=== PATIENT | male | born 1940 | race Caucasian/White ===

== ENCOUNTER → 2018-01-23 | Outpatient (CLI) | payer BC, MEDICARE | LOC: COL.RAD 08:46 | DX: Z01.812 Encounter for preprocedural laboratory examination (principal); R59.0 Localized enlarged lymph nodes; S22.32XD Fracture of one rib, left side, subsequent encounter for fracture with routine healing; Z98.890 Other specified postprocedural states; Z85.46 Personal history of malignant neoplasm of prostate | CPT/HCPCS: A9503; Q9967 ==

== ENCOUNTER → 2018-10-28 | Outpatient (CLI) | payer BC, MEDICARE | LOC: COL.RAD 08:46 | DX: Z01.818 Encounter for other preprocedural examination (principal); Z87.81 Personal history of (healed) traumatic fracture; Z90.79 Acquired absence of other genital organ(s) | CPT/HCPCS: A9503; Q9967 ==

== ENCOUNTER → 2019-06-23 | Outpatient (CLI) | payer MEDICARE | LOC: COL.RAD 09:41 | DX: C61 Malignant neoplasm of prostate (principal); M89.9 Disorder of bone, unspecified | CPT/HCPCS: A9503; Q9967 ==

== ENCOUNTER → 2019-10-01 | Outpatient (CLI) | payer MEDICARE | LOC: ZCOL.LAB 16:27 | DX: Z01.89 Encounter for other specified special examinations (principal) ==

== ENCOUNTER → 2020-01-06 | Outpatient (CLI) | payer MEDICARE | LOC: COL.RAD 08:49 | DX: C61 Malignant neoplasm of prostate (principal); G95.89 Other specified diseases of spinal cord; M48.8X4 Other specified spondylopathies, thoracic region | CPT/HCPCS: A9503; Q9967 ==

== ENCOUNTER → 2020-06-23 | Outpatient (CLI) | payer MEDICARE | LOC: COL.RAD | DX: C61 Malignant neoplasm of prostate (principal); C79.51 Secondary malignant neoplasm of bone; S22.42XD Multiple fractures of ribs, left side, subsequent encounter for fracture with routine healing; S72.142D Displaced intertrochanteric fracture of left femur, subsequent encounter for closed fracture with routine healing | CPT/HCPCS: A9503; Q9967 ==

== ENCOUNTER → 2020-12-15 | Outpatient (CLI) | payer MEDICARE ==
[~2020-12-15] MED LIST: COMPAZINE 110 MG/TAB PO; DECADRON 4MG TAB4 MG PO; DIGITEK0.25 MG PO; ELIQUIS 5MG PO; LUPRON DEPOT45 MG; NEULASTA O6 MG/0.6 M SQ; NORCO 325 MG-51 TAB PO; ONE-A-DAY ESSE1 EACH PO; PACERONE400 MG PO; PREDNISONE 5MG5 MG PO; TAXOTERE20 MG/ML IV; TOPROL XL 25MG25 MG PO; VITAMIN D31000 I1 PO; VITAMINC1000TA PO; ZYTIGA500 MG PO
== END ==
LOC: COL.RAD
DX: C61 Malignant neoplasm of prostate (principal); S22.39XA Fracture of one rib, unspecified side, initial encounter for closed fracture; M89.9 Disorder of bone, unspecified; M48.56XA Collapsed vertebra, not elsewhere classified, lumbar region, initial encounter for fracture
CPT/HCPCS: A9503; Q9967

== ENCOUNTER 2021-01-16 06:45 | Day surgery (SDC) | payer MEDICARE ==
[2006-09-12 06:13] VITALS: BP 145/81
[~2021-01-16] VITALS: Ht 185.4 cm; Wt 72.6 kg
[2021-01-16] MEDS ORDERED: ZYTIGA500 MG PO (07:26)
[2021-01-16] MEDS ORDERED: PREDNISONE 5MG5 MG PO (07:26)
[2021-01-16] MEDS ORDERED: VITAMIN D31000 I1 PO (07:27)
[2021-01-16] MEDS ORDERED: VITAMINC1000TA PO (07:27)
[2021-01-16] MEDS ORDERED: ONE-A-DAY ESSE1 EACH PO (07:28)
[2021-01-16] MEDS ORDERED: LUPRON DEPOT45 MG (07:29)
--- NOTE | 2021-01-16 07:49 | NUR ---
PT'S PULSE NOTED TO BE IRREGULAR WHEN COLLECTING VITAL SIGNS. AUSCULTATED HEART AND NOTED TO BE IRREGULAR. Nadeen SIMMS CRNA NOTIFIED, TORB RECEIVED FOR EKG. EKG ORDER PLACED.
--- NOTE | 2021-01-16 07:50 | NUR ---
RESPIRATORY THERAPY NOTIFIED OF EKG ORDER. RT STATES WILL BE ABOUT 20 MINUTES BEFORE THEY WILL BE ABLE TO OBTAIN EKG.
--- NOTE | 2021-01-16 08:00 | NUR ---
PT AND SPOUSE NOTIFIED THAT EKG HAD BEEN ORDERED AND THEY WOULD BE IN SHORTLY.
[2021-01-16 08:15] VITALS: BP 125/83; PULSE 68; TEMP 97.9
--- NOTE | 2021-01-16 08:23 | NUR ---
Nadeen SIMMS LABORER SHIPYARD NOTIFIED OF EKG RESULTS. Nadeen SIMMS LABORER SHIPYARD NOTIFIED DR. SEO.
--- NOTE | 2021-01-16 08:53 | NUR ---
RAHUL SEO/MARIO LUX FOR CBC, CMP, TROPONIN AND PORTABLE CHEST XRAY. ORDERS PLACED, LAB AND AIR CONDITIONING MECHANIC INDUSTRIAL NOTIFIED.
--- NOTE | 2021-01-16 09:00 | NUR ---
LAB IN TO COLLECT SPECIMEN.
--- NOTE | 2021-01-16 09:02 | NUR ---
NAILHEAD PUNCHER IN FOR PORTABLE XRAY.
[2021-01-16 09:10] LABS: BASO % 0.2 % (0.0-2.0); EOS # 0.1 (0.0-0.7); EOS % 1.3 % (0-4.0); GRAN # 6.7 (1.4-6.5); GRAN % 77.1 % (42.2-75.2); HEMATOCRIT 37.9 % (42.0-52.0); HEMOGLOBIN 12.6 g/dl (13.5-18.0); LYMPH # 1.2 (1.2-3.4); LYMPH % 14.1 % (20.0-51.0); MEAN CELL VOLUME 98 fl (80.0-100.0); MEAN CORPUSCULAR HEMOGLOBIN 33 pg (27.0-31.0); MEAN CORPUSCULAR HGB CONC 33 g/dl (33.0-37.0); MEAN PLATELET VOLUME 10.7 fl (7.4-10.4); MONO # 0.6 (0.1-0.6); MONO % 6.8 % (1.7-9.3); PLATELET COUNT 197 K/mm3 (130-400); RED BLOOD COUNT 3.88 M/mm3 (4.20-5.60); REDCELL DISTRIBUTION WIDTH-CV 14.5 % (11.5-14.5)
--- NOTE | 2021-01-16 09:15 | NUR ---
DR. PATHAK IN TO EVALUATE PT.
[2021-01-16 09:21] LABS: ALANINE AMINOTRANSFERASE 28 U/L (4-49); ALBUMIN 3.6 gm/dL (3.5-5.0); ALKALINE PHOSPHATASE 110 U/L (50-136); ANION GAP 7 mmol/L (7-16); AST,SGOT 23 U/L (15-37); BILIRUBIN,TOTAL 0.8 mg/dL (0.0-1.0); BLOOD UREA NITROGEN 15 mg/dL (9-20); CALCIUM 8.7 mg/dL (8.4-10.2); CARBON DIOXIDE 23 mmol/L (22-30); CHLORIDE 107 mmol/L (98-107); CREATININE, serum 0.59 (0.66-1.25); GLUCOSE 141 mg/dL (74-106); SODIUM 138 mmol/L (137-145); TOTAL PROTEIN 6.7 gm/dL (6.4-8.2)
[2021-01-16 09:35] LABS: TROPONIN-I < 0.012 ng/mL (0.000-0.035)
[2021-01-16 12:21] VITALS: BP 111/60; PULSE 69; TEMP 97.3
--- NOTE | 2021-01-16 12:21 | NUR ---
PT RETURNS TO [facility] [place] [facility] ACCOMPANIED BY Nadeen LEE RN. PT ALERT AND ORIENTED. DRESSING TO NECK C/D/I, SURGICAL GLUE PRESENT TO RIGHT CHEST. PT DENIES PAIN OR NAUSEA. VITAL WNL. REQUESTS MUFFIN AND ORANGE JUICE. AT BEDSIDE, CALL LIGHT IN REACH. MUFFIN AND JUICE PROVIDED.
[2021-01-16 12:36] VITALS: BP 117/73; PULSE 60
--- NOTE | 2021-01-16 12:36 | NUR ---
PT ATE MUFFIN AND DRANK ENTIRE GLASS OF ORANGE JUICE WITH NO DIFFICULTY. PT CONTINUES TO DENY PAIN OR NAUSEA. GLASS OF WATER PROVIDED PER PT'S REQUEST. AT BEDSIDE, CALL LIGHT IN REACH. VITALS WNL.
--- NOTE | 2021-01-16 12:45 | NUR ---
PT'S IV DISCONTINUED. DISCHARGE INSTRUCTIONS PROVIDED TO PT AND . BOTH PT AND VERBALIZE UNDERSTANDING, ALL QUESTIONS ANSWERED.
[2021-01-16 12:51] VITALS: BP 119/66; PULSE 71
--- NOTE | 2021-01-16 12:51 | NUR ---
PT REQUESTS TO USE RESTROOM AT THIS TIME. IV SALINE LOCKED. PT AMBULATES WITH STANDBY ASSISTANCE BY TO RESTROOM. RETURNS TO ROOM AND CHANGES INTO PERSONAL CLOTHING. VITALS WNL. CALL LIGHT IN REACH, AT BEDSIDE.
--- NOTE | 2021-01-16 13:53 | NUR ---
PT DISCHARGED VIA WHEEL CHAIR TO PRIVATE VEHICLE DRIVEN BY PT'S . PT BELONGINGS AND DISCHARGE PACKET SENT WITH PT'S .
[2021-05-08] MEDS ORDERED: TAXOTERE20 MG/ML IV (10:32)
[2021-05-08] MEDS ORDERED: DECADRON 4MG TAB4 MG PO (10:33)
[2021-05-08] MEDS ORDERED: NEULASTA O6 MG/0.6 M SQ (10:35)
[2021-05-08] MEDS ORDERED: ELIQUIS 5MG PO (10:36)
[2021-05-08] MEDS ORDERED: DIGITEK0.25 MG PO (10:36)
[2021-05-08] MEDS ORDERED: COMPAZINE 110 MG/TAB PO (10:37)
[2021-05-08] MEDS ORDERED: NORCO 325 MG-51 TAB PO (10:37)
[2021-05-08] MEDS ORDERED: TOPROL XL 25MG25 MG PO (10:38)
[2021-05-08] MEDS ORDERED: PACERONE400 MG PO ×3 (11:13→11:27)
== END 2021-01-16 13:53 | disposition home or self-care (01) ==
LOC: SDCO 06:45
PROVIDERS: Surgery
DX: C61 Malignant neoplasm of prostate (principal); C79.51 Secondary malignant neoplasm of bone; S32.029A Unspecified fracture of second lumbar vertebra, initial encounter for closed fracture; F17.210 Nicotine dependence, cigarettes, uncomplicated; Z91.048 Other nonmedicinal substance allergy status; Z79.52 Long term (current) use of systemic steroids; Z79.899 Other long term (current) drug therapy; Z20.822 Contact with and (suspected) exposure to COVID-19; Z85.828 Personal history of other malignant neoplasm of skin; Z80.0 Family history of malignant neoplasm of digestive organs
CPT/HCPCS: C1788; J0690; J1100; J1644; J1720; J1885; J2405; J2704; J3010; J7120

== ENCOUNTER → 2021-04-20 | Outpatient (CLI) | payer MEDICARE | LOC: COL.RAD 04-19 09:15 | DX: C61 Malignant neoplasm of prostate (principal) | CPT/HCPCS: A9503; Q9967 ==

== ENCOUNTER → 2021-09-04 | Outpatient (CLI) | payer MEDICARE | LOC: COL.RAD 09:10 | DX: C61 Malignant neoplasm of prostate (principal); S22.059A Unspecified fracture of T5-T6 vertebra, initial encounter for closed fracture; S22.31XA Fracture of one rib, right side, initial encounter for closed fracture | CPT/HCPCS: A9503; Q9967 ==

== ENCOUNTER → 2021-12-28 | Outpatient (CLI) | payer MEDICARE | LOC: COL.RAD 07:22 | DX: C61 Malignant neoplasm of prostate (principal); M48.9 Spondylopathy, unspecified; R91.8 Other nonspecific abnormal finding of lung field | CPT/HCPCS: Q9967 ==